=== PATIENT | female | born 1965 | race Caucasian/White ===

== ENCOUNTER 2020-10-19 09:59 | Day surgery (SDC) | payer OTHER ==
[2020-10-14 16:23] VITALS: BMI 28.3
[2020-10-19] MEDS ORDERED: GENTAMICIN SO4 80 MG/2 ML VIAL ONE (10:30)
[2020-10-19] MEDS ORDERED: ceFAZolin SODIUM 1 GM VIAL ONE ×2 (10:30→12:21)
[2020-10-19] MEDS ORDERED: fentaNYL CITRATE 250 MCG/5 ML VIAL ONE (12:04)
[2020-10-19] MEDS ORDERED: LIDOCAINE HCL/PF 2% SDV 5ML VIAL ONE (12:04)
[2020-10-19] MEDS ORDERED: PROPOFOL 20 ML ONE (12:04)
[2020-10-19] MEDS ORDERED: MIDAZOLAM HCL 2 MG/2 ML SINGLE DOSE VIAL ONE (12:04)
[2020-10-19] MEDS ORDERED: ONDANSETRON 4 MG/2 ML VIAL ONE (12:33)
[2020-10-19] MEDS ORDERED: DEXAMETHASONE SOD PHOSPHATE 4 MG/1 ML VIAL ONE (12:33)
[2020-10-19] MEDS ORDERED: BUPIVACAINE HCL/PF 0.25% (2.5MG/ML) 10 ML VIAL ONE (12:45)
[2020-10-19] MEDS ORDERED: GUM MASTIC/STORAX/MSAL/ALCOHOL 1 DRP DROPSBTL MC ONE (12:57)
[2020-10-19] MEDS ORDERED: ONDANSETRON 4 MG/2 ML VIAL IVPUSH PRN (13:17)
[2020-10-19] MEDS ORDERED: oxyCODONE HCL 5 MG TABLET PO PRN (13:17)
[2020-10-19] MEDS ORDERED: ACETAMINOPHEN 1000 MG/100 ML VIAL (NON FORMULARY) IVPB ONE (13:18)
[2020-10-19] MEDS ORDERED: LACTATED RINGERS SOLUTION 1,000 ML IV SCH (13:30)
[2020-10-19 14:30] VITALS: TEMP 97.9
[2020-10-19 15:11] VITALS: BP 120/68; PULSE 75
== END 2020-10-19 15:11 | disposition home or self-care (01) ==
LOC: FASU 09:59
PROVIDERS: ATTEND Surgery Plastic and Reconstructive Surgery
PROC: 0HRT0JZ Replacement of Right Breast with Synthetic Substitute, Open Approach (ICD-10-PCS; 2020-10-19)
PROC: 0HPT0JZ Removal of Synthetic Substitute from Right Breast, Open Approach (ICD-10-PCS; principal; 2020-10-19 12:32)
DX: T85.44XA Capsular contracture of breast implant, initial encounter (principal); N65.1 Disproportion of reconstructed breast; Z85.3 Personal history of malignant neoplasm of breast; Z90.11 Acquired absence of right breast and nipple
CPT/HCPCS: 94760; J0131